=== PATIENT | male | born 1965 | race Caucasian/White ===

== ENCOUNTER 2023-03-02 14:37 | Emergency (ER) | payer OTHER ==
[~2023-03-02] VITALS: Ht 188 cm; Wt 134.1 kg
[2023-03-02] MEDS ORDERED: normal saline 1000ml 1,000 ML IV ONE (15:20)
[2023-03-02] MEDS ORDERED: TETanus/Pertussis (Acell)/Diphther VAC/PF (Tdap-Adult) 0.5ml syringe IMVAC ONE (15:20)
[2023-03-02] MEDS ORDERED: ondansetron/PF 4mg/2ml inj IV ONE (15:20)
[2023-03-02] MEDS ORDERED: morphine 4 MG/ML inj SYRINge IV ONE (15:20)
[2023-03-02] MEDS ORDERED: LIDOcaine 1% W/epiNEPHrine 1:100,000 20ml vial SQ ONE (15:25)
[2023-03-02] MEDS ORDERED: ceFAZolin/D5W- 1GM premix 50 ML IV SCH (16:00)
--- NOTE | 2023-03-02 17:20 | NUR ---
I was about to give Morphine but when I asked patient if he has someone to drive him home if I give hime Morphine, he said no and that he has to drive. I explained to him thjat it would not be a safe situation if he drives when he received narcotic here. Patient refused Morphine at this time. He said he could wait and that his pain was tolerable at this time. Patient states "I will just take the pain medicine prescription the doctor will prescribe me when I get home.
[2023-03-02] MEDS ORDERED: ACET-3068 PO (17:51)
[2023-03-02] MEDS ORDERED: AMOX-117 PO (17:51)
[2023-03-02 18:09] VITALS: BP 159/93
== END 2023-03-02 18:32 | disposition home or self-care (01) ==
LOC: ER 14:37
DX: S61.012A Laceration without foreign body of left thumb without damage to nail, initial encounter (principal); Z79.899 Other long term (current) drug therapy; Z79.2 Long term (current) use of antibiotics; Z23 Encounter for immunization; X58.XXXA Exposure to other specified factors, initial encounter; Y93.89 Activity, other specified; Y92.89 Other specified places as the place of occurrence of the external cause; Y99.8 Other external cause status
CPT/HCPCS: 26951; 73140; 90471; 90715; 96361; 96365; 96366; 96375; 99284; A6222; J0690; J2405; J7030; A6449